=== PATIENT | male | born 1970 | race African-American/Black ===

== ENCOUNTER → 2017-07-01 | Outpatient (CLI) | payer OTHER ==
--- NOTE | 2017-07-01 16:03 | REP ---
MRI ORBITS WITHOUT CONTRAST: HISTORY: Diplopia The examination is incomplete as only axial T2-weighted images were obtained. The examination is limited secondary to motion. The globes, optic nerves and rectus muscles are normal in appearance. There is no orbital lesion. The visualized sinuses are clear. IMPRESSION: Limited incomplete examination demonstrating no orbital lesion. An addendum will be added if the patient returns to complete the examination. Signed by Anurag Jones MD 07/01/2017 04:14 P
--- NOTE | 2017-07-01 16:03 | REP ---
MR BRAIN WITHOUT CONTRAST: HISTORY: Blurred vision. Several punctate areas of increased signal intensity on T2 weighted images are present in the subcortical white matter. There is no intraparenchymal hemorrhage, infarct, mass, or midline shift. The ventricular system is normal in appearance. There is no extracerebral collection. The sinuses are clear. Impression: There are several punctate areas of increased signal intensity in the subcortical white matter. This is a nonspecific finding. Signed by Anurag Jones MD 07/01/2017 04:13 P
== END ==
LOC: M PLARAD 08:33
PROVIDERS: ATTEND Radiology Diagnostic Radiology
DX: H53.2 Diplopia (principal)

== ENCOUNTER → 2017-09-02 | Outpatient (CLI) | payer OTHER ==
--- NOTE | 2017-09-02 12:20 | REP ---
MR Brain without and with contrast HISTORY: Left facial pain. CONTRAST: ProHance 15 mL. COMPARISON: 07/01/2017. The examination is limited secondary to motion. Several punctate areas of increased signal intensity on T2-weighted images are present in the subcortical white matter. This represents small vessel ischemic disease. There is no intraparenchymal hemorrhage, infarct, mass or midline shift. There is no abnormal enhancement. The ventricular system is normal in appearance. There is no extracerebral collection. There is no skull base lesion. The nasal and oropharynx are normal in appearance. The sinuses are clear. IMPRESSION: Minimal small vessel ischemic disease. Signed by Anurag Jones MD 09/02/2017 12:31 P
== END ==
LOC: M PLARAD 09:19
PROVIDERS: ATTEND Ophthalmology
DX: G50.0 Trigeminal neuralgia (principal); R90.82 White matter disease, unspecified